=== PATIENT | male | born 1965 | race Caucasian/White ===

== ENCOUNTER 2019-07-07 09:36 | Day surgery (SDC) | payer OTHER ==
[2019-07-04 14:42] VITALS: BMI 29.2
[2019-07-07] MEDS ORDERED: ETOMIDATE 20 MG/10 ML AMPUL IVPUSH ONE ×2 (11:18→11:19)
[2019-07-07 11:42] VITALS: TEMP 97.9
[2019-07-07 12:35] VITALS: BP 103/54; PULSE 64
== END 2019-07-07 12:35 | disposition home or self-care (01) ==
LOC: JOR 09:36 → JASU-ENDO 09:36
PROVIDERS: ATTEND Internal Medicine Gastroenterology
PROC: 0DJD8ZZ Inspection of Lower Intestinal Tract, Via Natural or Artificial Opening Endoscopic (ICD-10-PCS; principal; 2019-07-07 10:30)
DX: Z12.11 Encounter for screening for malignant neoplasm of colon (principal); K57.30 Diverticulosis of large intestine without perforation or abscess without bleeding; Z86.010 Personal history of colon polyps; K64.8 Other hemorrhoids